=== PATIENT | female | born 1995 | race Caucasian/White ===

== ENCOUNTER 2018-08-12 19:57 | Emergency (ER) | payer SELFPAY ==
[~2018-08-12] VITALS: Ht 162.6 cm; Wt 55.7 kg
[2018-08-12 20:24] VITALS: Ht 162.6 cm; Wt 55.7 kg
[2018-08-13] MEDS ORDERED: KETOROLAC 30 MG INJ IM STA (00:47)
--- NOTE | 2018-08-13 02:01 | ERD ---
ER Documentation Chief Complaint Chief Complaint swelling/abrasion left side of face, states fell about 9 feet yesterday HPI 23-year-old female with no reported past medical history who presents status post fall from roof at home. 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 Patient said she thinks she lost consciousness for approximately 4 minutes. ROS All systems reviewed and are negative except as per history of present illness. Medications Home Meds Active Scripts Acetaminophen* (Tylophen*) 500 Mg Capsule, 1 CAP PO Q6H PRN for PAIN AND OR ELEVATED TEMP, #20 CAP Prov:YVES CANDELARIA-Kam 08/13/18 Tramadol HCl (Tramadol HCl) 50 Mg Tablet, 50 MG PO Q6 PRN for PAIN, #20 TAB Prov:YVES CANDELARIA-C 08/13/18 Allergies Allergies: Coded Allergies: No Known Allergies (Verified Allergy, Unknown, 08/12/18) PMhx/Soc Medical and Surgical Hx: pt denies Medical Hx, pt denies Surgical Hx Hx Alcohol Use: No Hx Substance Use: No Hx Tobacco Use: No Smoking Status: Never smoker Physical Exam Vitals Vital Signs Date Temp Pulse Resp B/P (MAP) Pulse Ox O2 O2 Flow FiO2 Time Delivery Rate 08/13/18 98.2 62 19 118/68 100 Room Air 02:55 (85) 08/12/18 99.8 73 18 128/73 100 20:24 (91) Physical Exam I have reviewed the triage vital signs. Const: Well nourished, well developed, appears stated age Eyes: PERRL, no conjunctival injection HENT: NCAT, Neck supple without meningismus, left eye with significant p eriorbital swelling, no eye involvement, tenderness to palpation but no crepitus CV: RRR, Warm, well-perfused extremities RESP: CTAB, Unlabored respiratory effort GI: soft, non-tender, non-distended, no masses MSK: No gross deformities appreciated Left elbow with decreased range of motion secondary to pain, tenderness to palpation at lateral epicondyle, mild swelling and erythema Skin: Warm, dry. No rashes Neuro: grossly non focal Psych: Appropriate mood and affect. Results 24 hrs Laboratory Tests Test 08/13/18 01:11 POC Beta HCG, Qualitative NEGATIVE Current Medications Medications Dose Sig/[place] Start Time Status Last (Trade) Ordered Route PRN Stop Time Admin Dose Reason Admin Ketorolac 30 mg ONCE STAT 08/13/18 DC 08/13/18 Tromethamine IM 00:47 01:21 (Toradol) 08/13/18 00:51 Procedures/MDM 23-year-old female status post fall presents with left-sided facial swelling and left elbow pain. CT of the orbit without acute finding X-ray of left elbow with fracture, proximal radius involving the humeral head and neck consistent with a slightly impacted acute fracture Discharge with appropriate pain medications, splint applied to affected limb, neurovascular intact post splint application, patient advised follow-up with PMD for referral to orthopedics specialist Left shoulder x-ray without acute finding DISPOSITION PLAN: We discussed follow up with the patient's primary care doctor within 24 to 48 h ours. Patient counseled regarding my diagnostic impression and care plan. Prior to discharge all questions answered. Pt agrees with treatment plan and understands strict return precautions. Precautionary instructions provided including instructions to return to the ER if not improving or for any worsening or changing symptoms or concerns. Disclaimer: Inadvertent spelling and grammatical errors are likely due to EHR/dictation software use and do not reflect on the overall quality of patient care. Also, please note that the electronic time recorded on this note does not necessarily reflect the actual time of the patient encounter. Departure Diagnosis: Primary Impression: Elbow fracture, left Condition: Stable YVES CANDELARIA PA-C August 13, 2018 02:01
[2018-08-13] MEDS ORDERED: ACET500C5 PO (02:06)
[2018-08-13] MEDS ORDERED: TRAM50TA2 PO (02:06)
[2018-08-13 02:55] VITALS: BP 118/68; PULSE 62; RESP 19
== END 2018-08-13 02:55 | disposition home or self-care (01) ==
LOC: FTE 19:57
DX: S52.122A Displaced fracture of head of left radius, initial encounter for closed fracture (principal); S52.132A Displaced fracture of neck of left radius, initial encounter for closed fracture; W18.39XA Other fall on same level, initial encounter; Y92.009 Unspecified place in unspecified non-institutional (private) residence as the place of occurrence of the external cause
CPT/HCPCS: 70480; 73030; 73080; 81025; 96372; 99285; J1885